=== PATIENT | male | born 1955 | race African-American/Black ===

== ENCOUNTER 2018-08-21 01:57 | Inpatient (IN) | payer MEDICARE ==
[2018-08-21] MEDS ORDERED: Naloxone HCl 2 mg/2 ml Syringe ONE ×2 (02:02→03:17)
[2018-08-21 02:41] LABS: #Eosinphils 0.2 thou/uL (0.0-0.7); #Lymphocytes 2.2 thou/uL (1.20-3.40); #Monocytes 0.7 thou/uL (0.11-0.59); #Neutrophils 5.8 thou/uL (1.40-6.50); %Basophils 0.3 % (0.0-1.0); %Eosinophils 1.9 % (0.0-10.0); %Lymphocytes 24.4 % (21.0-51.0); %Monocytes 8.1 % (0.0-10.0); %Neutrophils 65.4 % (42.0-75.0); Hemoglobin 14.2 g/dL (14.0-18.0); Mean Corpuscular HGB CONC 33.6 g/dL (32.0-36.0); Mean Corpuscular Hemoglobin 29.3 pg (27.0-31.0); Mean Platelet Volume 8.1 fL (7.4-10.4); Platelet Count 235 thou/uL (130-400); RBC Distribution Width 12.6 % (11.5-14.5); Red Blood Cell (RBC) Count 4.86 mill/uL (4.70-6.10); White Blood Cell (WBC) Count 8.9 thou/uL (4.8-10.8)
[2018-08-21 02:43] LABS: Acetaminophen Less than 6.0 mcg/mL (10.0-30.0); Alcohol Less than 10 mg/dL (Less than 10); Salicylate Less than 8.0 mg/dL (15.0-30.0)
[2018-08-21 02:44] LABS: ALT (SGPT) 16 U/L (8-55); AST (SGOT) 20 U/L (5-34); Albumin 4.4 g/dL (3.4-4.8); Alkaline Phosphatase 65 U/L (40-150); Anion Gap 12 mmol/L (10-20); BUN (Urea Nitrogen) 8 mg/dL (8.4-25.7); Bilirubin, Total 0.7 mg/dL (0.2-1.2); Calc. Creatinine Clearance 0 mL/min (70-130); Calcium 9.4 mg/dL (7.8-10.44); Carbon Dioxide 25 mmol/L (23-31); Chloride 102 mmol/L (98-107); Estimated GFR-MDRD Greater than 90; Globulin 3.5 g/dL (2.4-3.5); Glucose 247 mg/dL (80-115); Potassium 3.5 mmol/L (3.5-5.1); Protein, Total 7.9 g/dL (5.8-8.1); Sodium 135 mmol/L (136-145)
[2018-08-21] MEDS ORDERED: Naloxone HCl 2 MG, Admixture Fee 1 EACH in Sodium Chloride 0.9% 500 ML IV SCH (04:00)
[2018-08-21 06:01] LABS: Amphetamine Not Detected (NotDetected); Barbiturates Screen Not Detected (NotDetected); Benzodiazepine Screen Detected (NotDetected); Cocaine Metabolite Screen Not Detected (NotDetected); Medtox Control Line Valid? VALID (VALID); Medtox Reader # READER 1; Methadone Not Detected (NotDetected); Methamphetamine Not Detected (NotDetected); Opiate Screen Detected (NotDetected); Oxycodone Screen Not Detected (NotDetected); Phencyclidine (PCP) Not Detected (NotDetected); THC/Cannabinoid Screen Not Detected (NotDetected); Tricyclic Screen Not Detected (NotDetected)
[2018-08-21] MEDS ORDERED: HumaLOG 300 UNITS/3 ML VIAL SC PRN (08:05)
[2018-08-21] MEDS ORDERED: Dextrose 5% in Water 1,000 ML IV PRN (08:05)
[2018-08-21] MEDS ORDERED: Acetaminophen 650 MG Suppository PR PRN (08:05)
[2018-08-21] MEDS ORDERED: Acetaminophen 325 MG TAB PO PRN (08:05)
[2018-08-21] MEDS ORDERED: Dextrose 50% Abboject 50 ML SYRINGE SLOW IVP PRN (08:05)
[2018-08-21] MEDS ORDERED: Bisacodyl 5 MG TAB PO PRN (08:05)
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
[2018-08-21] MEDS: Sodium Chloride 0.9% 1,000 ML IV SCH ×4 (14:34→22:17)
[2018-08-21 14:35] VITALS: BMI 28.0
[2018-08-21] MEDS: Nicotine 21 MG PATCH TD SCH ×2 (15:42)
--- NOTE | 2018-08-21 15:48 | CON ---
DATE OF CONSULTATION: 08/21/2018 CONSULTING PHYSICIAN: Dr. Huddleston from the Hospitalist group. REASON FOR CONSULTATION: Morphine overdose. HISTORY OF PRESENT ILLNESS: Mr. Cantu is a 62-year-old -[place] male who took a friend's instant release morphine liquid about 7:30 last night. The patient says he drank about an ounce and a half. He was brought to the emergency room last night around 1:30, hypersomnolent. He was given N arcan, which resulted in an abrupt reversal. He was subsequently placed on Narcan drip, which he con tinued to be on when I arrived in the ER to see him this morning. I found the patient, arousable, aw froilan, alert, easily conversant. He has no complaints at this time. PAST MEDICAL HISTORY: 1. Diabetes mellitus type 2. 2. Hypertension. 3. Coronary artery disease. 4. Peripheral neuropathy. 5. Depression. PAST SURGICAL HISTORY: He has had abdominal surgery and hip surgery. PSYCHIATRIC HISTORY: Remarkable for anxiety, depression. SOCIAL HISTORY: Denies any drug use other than morphine use last night. Smokes a pack a day. Does not consume alcohol. MEDICATIONS PRIOR TO ADMISSION: Not known at this time. REVIEW OF SYSTEMS: Twelve point review of systems otherwise negative. PHYSICAL EXAMINATION: VITAL SIGNS: His end-tidal CO2 is currently 32, blood pressure 150/59, pulse 63, respirations 14, O2 sat 100%. GENERAL: He is awake, alert, in no distress, fully oriented x3. HEENT: Pupils 4 mm reactive, sclerae are anicteric. Oropharynx clear. NECK: No adenopathy. No JVD. LUNGS: Clear without wheezing or rhonchi. CARDIAC: S1, S2 regular, without murmur. ABDOMEN: Soft, nontender. EXTREMITIES: No clubbing, cyanosis, or edema. LABORATORY DATA: Drug screen positive for benzodiazepines and opiates. White blood cell count 8.9, hematocrit 42.3, platelet count 235. Sodium 135, potassium 3.5, chloride 102, CO2 25, BUN 8, creatin ine 0.9, glucose 247. ASSESSMENT: Probable opiate ingestion perhaps concurrent benzodiazepine ingestion. RECOMMENDATIONS: I would recommend stopping the Narcan drip and observe him. If he does well off th e Narcan drip, then he can probably be placed in observation status overnight and sent home tomorrow. He needs to be started back on his home medications as deemed appropriate by the hospitalist hortencia mohan. He does not need any kind of mechanical ventilation. I doubt he will need to be put in the ICU.
[2018-08-22 04:01] LABS: #Eosinphils 0.3 thou/uL (0.0-0.7); #Monocytes 0.7 thou/uL (0.11-0.59); #Neutrophils 5.6 thou/uL (1.40-6.50); %Basophils 0.3 % (0.0-1.0); %Lymphocytes 23.7 % (21.0-51.0); %Monocytes 8.3 % (0.0-10.0); %Neutrophils 64.8 % (42.0-75.0); Mean Corpuscular HGB CONC 33.7 g/dL (32.0-36.0); Mean Corpuscular Hemoglobin 29.5 pg (27.0-31.0); Mean Corpuscular Volume 87.5 fL (78.0-98.0); Mean Platelet Volume 8.2 fL (7.4-10.4); Platelet Count 200 thou/uL (130-400); RBC Distribution Width 12.6 % (11.5-14.5); Red Blood Cell (RBC) Count 4.73 mill/uL (4.70-6.10); White Blood Cell (WBC) Count 8.6 thou/uL (4.8-10.8)
[2018-08-22 04:13] LABS: Anion Gap 9 mmol/L (10-20); BUN (Urea Nitrogen) 7 mg/dL (8.4-25.7); Calc. Creatinine Clearance 137 mL/min (70-130); Calcium 8.8 mg/dL (7.8-10.44); Carbon Dioxide 28 mmol/L (23-31); Chloride 106 mmol/L (98-107); Estimated GFR-MDRD Greater than 90; Glucose 125 mg/dL (80-115); Potassium 3.5 mmol/L (3.5-5.1); Sodium 139 mmol/L (136-145)
[2018-08-22] MEDS: Sodium Chloride 0.9% 1,000 ML IV SCH ×2 (04:26→07:17)
[2018-08-22 08:19] VITALS: TEMP 97.7
[2018-08-22] MEDS: Nicotine 21 MG PATCH TD SCH (08:51)
[2018-08-22] MEDS ORDERED: Non-Formulary Item 1 EACH (Insulin Aspart [Novolog] 100 UNIT) SQ PRN (09:33)
--- NOTE | 2018-08-22 11:29 | PRG ---
DATE OF SERVICE: 08/22/2018 SUBJECTIVE: The patient is doing well, has no complaints. PHYSICAL EXAMINATION: VITAL SIGNS: His temperature is 98.3, pulse 66, blood pressure 145/75, O2 sat 100%. NEUROLOGICAL: He is intact throughout. HEENT: Unremarkable. NECK: No JVD. CHEST: Clear without wheezing. CARDIAC: S1 and S2 regular. ABDOMEN: Soft. EXTREMITIES: No edema. LABORATORY DATA: Chemistry is normal except for slightly elevated glucose of 125. CBC is normal. ASSESSMENT: Narcotic ingestion - it sounds like this was probably some type of codeine cough syrup _ ____ also known as the purple "drank". PLAN: This patient is stable for hospital discharge. He does not need any further medical workup or therapy. He has been cautioned not to ingest any such drugs in the future. Pulmonary will sign off the case. Please recall if further assistance needed.
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
[2018-08-22] MEDS ORDERED: Lisinopril 10 MG TAB PO SCH (21:00)
[2018-08-23] MEDS ORDERED: Gabapentin 300 MG CAP PO SCH (09:00)
[2018-08-23] MEDS ORDERED: Glimepiride 2 MG TAB PO SCH (09:00)
[2018-08-23] MEDS ORDERED: buPROPion HCl 100 MG TAB PO SCH (09:00)
== END 2018-08-22 10:55 | disposition home or self-care (01) | DRG 918 ==
LOC: ERS 01:57 → ERHOLD 04:18 → CCU 14:13
PROVIDERS: ADMIT Internal Medicine; ATTEND Internal Medicine
DX: T40.2X1A Poisoning by other opioids, accidental (unintentional), initial encounter (principal); F17.210 Nicotine dependence, cigarettes, uncomplicated; I25.10 Atherosclerotic heart disease of native coronary artery without angina pectoris; E11.42 Type 2 diabetes mellitus with diabetic polyneuropathy; F32.9 Major depressive disorder, single episode, unspecified
CPT/HCPCS: 36415; 36416; 80048; 80053; 80306; 80307; 85025; 94760; 96365; 96366; 96376; J2310; J7050